=== PATIENT | female | born 1955 | race Caucasian/White ===

== ENCOUNTER 2025-09-16 10:00 | Outpatient (RCR) | payer MEDICARE, BC, SELFPAY | END 2025-09-16 12:29 | disposition home or self-care (01) | PROVIDERS: Visit Provider Family Medicine | DX: M70.61 Trochanteric bursitis, right hip (principal); M76.01 Gluteal tendinitis, right hip; M43.16 Spondylolisthesis, lumbar region; M54.16 Radiculopathy, lumbar region; M25.562 Pain in left knee; G89.29 Other chronic pain; Z51.89 Encounter for other specified aftercare | CPT/HCPCS: 97110; 97140; 97161; 97535 ==